=== PATIENT | male | born 1945 | race Caucasian/White ===

== ENCOUNTER 2024-10-14 23:31 | Emergency (ER) | payer MEDICARE, BC, SELFPAY ==
[2024-10-14 23:37] VITALS: BP 188/128
[2024-10-15 00:05] LABS: % Basophils 0.7 % (0-2); % Eosinophils 1.7 % (0-6); % Immature Granulocytes 0.3 % (0-0.5); % Lymphocytes 42.9 % (20.5-51.1); % Neutrophils 44.4 % (42.2-75.2); Absolute Basophils 0.1 10^3/uL (0-0.2); Absolute Eosinophils 0.1 10^3/uL (0-0.7); Absolute Lymphocytes 3.3 10^3/uL (1.2-3.4); Absolute Monocytes 0.8 10^3/uL (0.1-0.6); Absolute Neutrophils 3.4 10^3/uL (1.4-6.5); Hematocrit 45.9 % (39.0-52.0); Hemoglobin 15.7 g/dL (13.0-18.0); Mean Corp Hgb Conc. 34.2 g/dL (33.0-37.0); Mean Corpuscular Hgb 30.2 pg (27.0-31.0); Mean Corpuscular Volume 88.3 fL (80.0-94.0); Mean Platelet Volume 9.4 fL (7.4-10.4); Nucleated Red Blood Cells % 0 % (-); Platelet Count 186 10^3/uL (130-400); Red Cell Dist. Width 13.3 % (11.5-14.5); White Blood Cell Count 7.6 10^3/uL (4.8-10.8)
[2024-10-15 00:10] LABS: ALT (SGPT) 23 U/L (0-50); AST (SGOT) 24 U/L (17-59); Albumin 4.5 g/dl (3.5-5.0); Alkaline Phosphatase 49 U/L (38-126); Blood Urea Nitrogen 22 mg/dl (9-20); Calcium 10.1 mg/dl (8.4-10.2); Carbon Dioxide 25 mmol/L (22-30); Chloride 109 mmol/L (98-107); Glucose 116 mg/dl (70-99); Potassium 4.1 mmol/L (3.5-5.1); Sodium 142 mmol/L (135-145); Total Bilirubin 0.8 mg/dl (0.2-1.3); Total Protein 6.8 g/dl (6.3-8.2); eGFR > 60.00
[2024-10-15 00:21] LABS: Troponin I < 0.012 ng/ml
--- NOTE | 2024-10-15 00:47 | ED.GENMED ---
History of Present Illness
General
Chief Complaint: Blood Pressure Problem
Source: patient and spouse
Time Seen by Provider: 10/15/24 00:21
History of Present Illness
History of Present Illness:
79-year-old gentleman presents to the emergency room complaining of having an episode where he had discomfort that originally presented in his left arm and migrated to his left groin and then his left lower extremity. The discomfort was present for
just a brief period of time in each area. It then dissipated completely. Patient has been having intermittent headaches on the left side of his head. Patient states he was concerned about the symptoms because he had an episode of left-sided
visual loss about a weeks ago. The vision was missing for about a minute. He was seen by his inspector poising who told him he may have had a TIA or stroke. Patient denies any focal weakness numbness or tingling at the time of my evaluation. He
denies any chest pain or shortness of breath. He takes a medication for cholesterol but no other prescription medications.
Phy Exam
Physical Exam
Physical Exam:
General: Awake, Alert, Oriented X3. No acute distress.
Vitals: unremarkable
Head: Atraumatic
Eyes: Pupils equal, EOMI
Throat: Airway intact, no exudates
Neck: Trachea midline
Lungs: Clear and equal b/l
Heart: Regular rate, no murmurs
Abd: Soft, Nontender, No pulsatile mass
Neuro: Cranial nerves intact, muscle strength equal bilaterally, cerebellar exam normal
Skin: Warm, dry, no rash
Extremities: pulses equal b/l, no edema
Course
Orders/Labs/Results
Orders:
Orders
10/14/24 23:44
Complete Blood Count/With Diff Urgent
Comprehensive Metabolic Panel Urgent
Troponin I Urgent
10/15/24 00:46
EKG [Electrocardiogram (*1)] Urgent
Reason for Study: Chest Pain
Other Reason for Exam: no chest pain now, + l upper arm pain
Electrocardiogram (*1) Urgent
Reason for Study: Chest Pain
Cardiac Monitoring- Treatment ONCE
EKG- Treatment ONCE
10/15/24 00:47
CT Head W/o Iv Contrast Urgent
Comment:
Reason For Exam: headache, transient visual changes
Abnormal Lab Results
10/14/24
23:44
Absolute Monos (auto) 0.8 H 10^3/uL
(0.1-0.6)
Monocytes % 10.0 H %
(1.7-9.3)
Chloride 109 H mmol/L
(98-107)
BUN 22 H mg/dl
(9-20)
Glucose 116 H mg/dl
(70-99)
10/14/24 23:44
10/14/24 23:44
Vital Signs
Initial and Last Documented VS:
Initial Vital Signs
Temp Pulse Resp BP Pulse Ox
97.8 F 96 20 188/128 98
10/14/24 23:37 10/14/24 23:37 10/14/24 23:37 10/14/24 23:37 10/14/24 23:37
Last Documented Vital Signs
Temp Pulse Resp BP Pulse Ox
97.8 F 67 20 164/98 96
10/14/24 23:37 10/15/24 02:45 10/15/24 02:45 10/15/24 02:43 10/15/24 02:45
MDM/Problems Addressed
Differential Diagnosis Includes:
Anginal complaint, provide hypertension, TIA
MDM/Problems Addressed:
Patient presents after having transient discomfort in locations on the left side of his body. His neurologic exam here is benign. Labs are unremarkable. CT of the head shows no acute ischemic changes. Troponin is negative. EKG shows no acute
ischemic changes. Unclear what exactly caused the patient to have this fleeting discomfort but there is no evidence for an unstable process. Patient stable for discharge home and outpatient follow-up.
*Radiology
Radiology exam reviewed: all reviewed NAD by ED Provider (Patient report reviewed)
*Pulse Oximetry
Patient hypoxic: no
*EKG
Interpreted by ED Provider?: Yes
Heart Rate: 66
Rate: normal
Rhythm: sinus and PVC's
[place]: normal axis
Interval: normal interval
QRS Pattern: normal QRS
Ischemia: no ischemia
*Clerk Of Scales Interpretation
Rate: normal
Interpretation: normal
Rhythm: sinus
*Critical Care Note
Total Time (30-74mins, 75-104mins- exclusive of procedures): Not Applicable
ED Attending Note
-
Portions of this chart may have been created with voice recognition software.� Occasional wrong word or��sound alike� substitutions may have occurred due to the inherent limitations of voice recognition software.
Discharge Plan
Departure
Patient Disposition: Home (Routine Discharge)
Date of Disposition: 10/15/24
Time of Disposition: 02:57
Patient with high blood pressure during this ER visit?: Yes
Condition: Good
Discharge Problem:
Intermittent left-sided chest pain
Instructions: High Blood Pressure (DC), Chest Pain PCP Follow Up
Referrals:
Nikhil Arauz, DO [Family Provider] -
Activity Restrictions/Additional Instructions:
Your neurologic exam is normal here in the emergency room. Your head Ct does not show any acute abnormalities. Please follow up with your primary care doctor and cardiology as scheduled.
Interventions
Interventions:
*Risk Screen - Suicide Last Done: 10/14/24 23:35
*General Assessment Last Done: 10/15/24 00:40
*Neglect/Abuse Screening Last Done: 10/14/24 23:35
*ED- Fall Risk Assessment Last Done: 10/15/24 00:40
*ED COVID-19 Vaccine History Last Done: 10/15/24 03:00
*Nursing Disposition Last Done: 10/15/24 03:00
ED- Cardiac Assessment Last Done: 10/15/24 00:40
ED- Neurological Assessment Last Done: 10/15/24 00:40
ED- Pulmonary Assessment Last Done: 10/15/24 00:40
Discharge Date and Time
Discharge Date/Time: 10/15/24 03:00
Print Language: SALVADOREAN
[2024-10-15 00:50] VITALS: BP 162/91
[2024-10-15 01:00] VITALS: BP 178/93
[2024-10-15 02:43] VITALS: BP 164/98
== END 2024-10-15 03:00 | disposition home or self-care (01) ==
LOC: EMR 23:31
PROVIDERS: Emergency Medicine; EMERGENCY PHYSICIAN Emergency Medicine; FAMILY PHYSICIAN Family Medicine
DX: R07.89 Other chest pain (principal); M79.602 Pain in left arm; R51.9 Headache, unspecified; H53.122 Transient visual loss, left eye; R03.0 Elevated blood-pressure reading, without diagnosis of hypertension; Z79.899 Other long term (current) drug therapy
CPT/HCPCS: 99284; 70450; 80053; 84484; 85025; 93005

== ENCOUNTER → 2024-10-16 13:31 | Outpatient (REF) | payer MEDICARE, BC, SELFPAY | LOC: RAD 13:31 | PROVIDERS: ATTENDING PHYSICIAN Family Medicine | DX: G45.9 Transient cerebral ischemic attack, unspecified (principal) | CPT/HCPCS: 93880 ==

== ENCOUNTER → 2024-12-13 12:55 | Outpatient (REF) | payer MEDICARE, BC, SELFPAY | LOC: RCS 12:55 | PROVIDERS: ATTENDING PHYSICIAN Internal Medicine Cardiovascular Disease; FAMILY PHYSICIAN Family Medicine | DX: G45.9 Transient cerebral ischemic attack, unspecified (principal) | CPT/HCPCS: 93306 ==

== ENCOUNTER 2025-03-30 15:45 | Emergency (ER) | payer SELFPAY ==
[2025-03-30 15:48] VITALS: BP 159/101
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
== END 2025-03-30 20:42 | disposition home or self-care (01) ==
LOC: EMR 15:45
PROVIDERS: EMERGENCY PHYSICIAN Emergency Medicine; FAMILY PHYSICIAN Family Medicine
DX: S09.90XA Unspecified injury of head, initial encounter (principal); S00.12XA Contusion of left eyelid and periocular area, initial encounter; S00.81XA Abrasion of other part of head, initial encounter; V49.40XA Driver injured in collision with unspecified motor vehicles in traffic accident, initial encounter; W22.19XA Striking against or struck by other automobile airbag, initial encounter; Y92.410 Unspecified street and highway as the place of occurrence of the external cause; I10 Essential (primary) hypertension; E78.00 Pure hypercholesterolemia, unspecified; Z86.16 Personal history of COVID-19
CPT/HCPCS: 99284; 70450; 70486; 71046; 71120; 72125

== ENCOUNTER 2025-06-16 16:14 | Emergency (ER) | payer MEDICARE, BC, SELFPAY ==
[2025-06-16] VITALS (9 sets, daily range): BP systolic 133–157; BP diastolic 79–96; BMI 30.8
[2025-06-16 16:56] LABS: Hematocrit 44.9 % (39.0-52.0); Hemoglobin 15.2 g/dL (13.0-18.0); Mean Corp Hgb Conc. 33.9 g/dL (33.0-37.0); Mean Corpuscular Volume 90.0 fL (80.0-94.0); Nucleated Red Blood Cells % 0 % (-); Platelet Count 189 10^3/uL (130-400); Red Cell Dist. Width 13.4 % (11.5-14.5)
[2025-06-16 17:10] LABS: ALT (SGPT) 25 U/L (0-50); AST (SGOT) 25 U/L (17-59); Albumin 4.3 g/dl (3.5-5.0); Alkaline Phosphatase 45 U/L (38-126); Blood Urea Nitrogen 16 mg/dl (9-20); Calcium 9.3 mg/dl (8.4-10.2); Carbon Dioxide 27 mmol/L (22-30); Chloride 103 mmol/L (98-107); Glucose 109 mg/dl (70-99); Potassium 4.4 mmol/L (3.5-5.1); Sodium 135 mmol/L (135-145); Total Protein 6.9 g/dl (6.3-8.2); eGFR > 60.00
[2025-06-16 17:20] LABS: COVID-19 Antigen Negative (Negative)
[2025-06-16] MEDS: TYLENOL 650 MG PO (18:05)
[2025-06-16] MEDS: NSS 1000 IV (18:13)
--- NOTE | 2025-06-16 19:03 | ED.GENMED ---
History of Present Illness
<Senait Kuhn PA-C - Last Filed: 06/17/25 21:16>
General
Chief Complaint: Breathing Problem
Source: patient
Exam Limitations: none
Time Seen by Provider: 06/16/25 17:23
Nursing documentation reviewed up to this point in time: agreed with
History of Present Illness
History of Present Illness:
Patient is an 80-year-old male who presents emergency department for evaluation of fever and cough. Patient states he woke up early this morning and had a temp of 102.7F. He then developed a cough this morning. He describes initially noticing
blood-tinged sputum however then coughed up what resembled a small clot.
He was seen by his primary care provider where he coughed up a small amount of 'purple sputum'. He was referred to the emergency department for further evaluation.
Patient denies any chest pain or shortness of breath. He denies any GI symptoms including nausea/vomiting or diarrhea. He denies any recent travel or recent surgery. No history of malignancy.
Of note�a few of his family numbers to eat dinner with are sick with URI symptoms.
Past History
<Senait Kuhn PA-C - Last Filed: 06/17/25 21:16>
Past History
ED Past Medical History: HTN and Hypercholesterolemia
Review of Systems
<Senait Kuhn PA-C - Last Filed: 06/17/25 21:16>
Review of Systems
Allergies reviewed?: Yes
All Other Systems: ROS reviewed and negative except as documented in HPI and ROS
Phy Exam
<Senait Kuhn PA-C - Last Filed: 06/17/25 21:16>
Physical Exam
Physical Exam:
Vitals: Patient's vital signs are stable. Afebrile
General: Patient is well appearing, no acute distress. Nontoxic appearing
Skin: Warm and dry, no rashes or lesions
Head: Normocephalic, atraumatic
Eyes: Sclera nonicteric.
Throat: Protecting airway
Neck: Normal ROM, no cervical spine tenderness, no meningismus
Cardiac: Regular rate and rhythm, no murmurs.
Pulm: Normal respiratory effort. Lungs clear
Abdomen: No abdominal tenderness.
Extremities: No evidence of cyanosis or edema
Neuro: AAOx3. Grossly intact.
Psychiatric: Normal affect.
Scores
<Senait Kuhn PA-C - Last Filed: 06/17/25 21:16>
Heart Failure Risk
Heart Failure Risk Score: Not Applicable
Course
<Senait Kuhn PA-C - Last Filed: 06/17/25 21:16>
Orders/Labs/Results
Orders:
Orders
06/16/25 16:27
CR Chest - 2 Views Urgent
Comment:
Reason For Exam: cough.fever
06/16/25 16:38
COVID-19 Antigen Urgent
Source: Nasal Swab
Complete Blood Count/With Diff Urgent
Comprehensive Metabolic Panel Urgent
Influenza A+B Rapid Molecular Urgent
SHAHAB Source: Nasal Swab
Specimen Description:
06/16/25 17:45
0.9% Sodium Chloride 1000 ml [Nss] 1,000 ml IV BOLUS
Acetaminophen [Tylenol] 650 mg PO NOW STA
06/16/25 19:50
D-Dimer Urgent
06/16/25 20:[address] [CT Chest With Iv Contrast] Urgent
Comment:
Reason For Exam: fever, cough, hemoptysis
06/16/25 22:35
Azithromycin [Zithromax] 500 mg PO NOW STA
Abnormal Lab Results
06/16/25 06/16/25
16:38 19:50
WBC 14.9 H 10^3/uL
(4.8-10.8)
Abs Immat Gran (auto) 0.1 H 10^3/uL
(0-0.05)
Absolute Neuts (auto) 12.5 H 10^3/uL
(1.4-6.5)
Absolute Monos (auto) 0.9 H 10^3/uL
(0.1-0.6)
Neutrophils % 84.1 H %
(42.2-75.2)
Lymphocytes % 8.9 L %
(20.5-51.1)
D-Dimer 0.71 H ug/mlFEU
(0.00-0.50)
Glucose 109 H mg/dl
(70-99)
06/16/25 16:38
06/16/25 16:38
Vital Signs
Initial and Last Documented VS:
Initial Vital Signs
Temp Pulse Resp BP Pulse Ox
97.9 F 99 20 138/84 94
06/16/25 16:25 06/16/25 16:25 06/16/25 16:25 06/16/25 16:25 06/16/25 16:25
Last Documented Vital Signs
Temp Pulse Resp BP Pulse Ox
97.9 F 74 22 157/90 95
06/16/25 16:25 06/16/25 22:40 06/16/25 22:40 06/16/25 22:40 06/16/25 22:34
<Jared Pack MD - Last Filed: 06/16/25 19:37>
Orders/Labs/Results
Orders:
Orders
06/16/25 16:27
CR Chest - 2 Views Urgent
Comment:
Reason For Exam: cough.fever
06/16/25 16:38
COVID-19 Antigen Urgent
Source: Nasal Swab
Complete Blood Count/With Diff Urgent
Comprehensive Metabolic Panel Urgent
Influenza A+B Rapid Molecular Urgent
SHAHAB Source: Nasal Swab
Specimen Description:
06/16/25 17:45
0.9% Sodium Chloride 1000 ml [Nss] 1,000 ml IV BOLUS
Acetaminophen [Tylenol] 650 mg PO NOW STA
06/16/25 19:50
D-Dimer Urgent
06/16/25 20:[address] [CT Chest With Iv Contrast] Urgent
Comment:
Reason For Exam: fever, cough, hemoptysis
06/16/25 22:35
Azithromycin [Zithromax] 500 mg PO NOW STA
Abnormal Lab Results
06/16/25 06/16/25
16:38 19:50
WBC 14.9 H 10^3/uL
(4.8-10.8)
Abs Immat Gran (auto) 0.1 H 10^3/uL
(0-0.05)
Absolute Neuts (auto) 12.5 H 10^3/uL
(1.4-6.5)
Absolute Monos (auto) 0.9 H 10^3/uL
(0.1-0.6)
Neutrophils % 84.1 H %
(42.2-75.2)
Lymphocytes % 8.9 L %
(20.5-51.1)
D-Dimer 0.71 H ug/mlFEU
(0.00-0.50)
Glucose 109 H mg/dl
(70-99)
06/16/25 16:38
06/16/25 16:38
Vital Signs
Initial and Last Documented VS:
Initial Vital Signs
Temp Pulse Resp BP Pulse Ox
97.9 F 99 20 138/84 94
06/16/25 16:25 06/16/25 16:25 06/16/25 16:25 06/16/25 16:25 06/16/25 16:25
Last Documented Vital Signs
Temp Pulse Resp BP Pulse Ox
97.9 F 74 22 157/90 95
06/16/25 16:25 06/16/25 22:40 06/16/25 22:40 06/16/25 22:40 06/16/25 22:34
<Senait Kuhn PA-C - Last Filed: 06/17/25 21:16>
MDM/Problems Addressed
Differential Diagnosis Includes:
Not limited to: Bronchitis, pneumonia, viral illness, pulmonary embolism, malignancy, EXTR
MDM/Problems Addressed:
80-year-old male presenting with fever, cough, and episodes of hempotysis today. Not anticoagulated. Does have recent sick contacts. He is afebrile here with otherwise stable vital signs. He�s not hypoxic or tachypneic. On exam, he appears in no
distress. Cardio/pulmonary assessment reveals regular heart rate and rhythm. Lungs clear bilaterally. No pitting edema or tenderness of lower extremities.
Differential broad. With associated fever and cough � clinical picture most consistent with infectious etiology, including pneumonia or bronchitis. However, pulmonary embolism would be on differential, although he has no risk factors.
Basic labs reveal a leukocytosis of 14.9. Chemistry panel unremarkable. His chest x-ray does not show any acute findings.
Plan to proceed with CT imaging of chest for further evaluation. Will check d-dimer first.
D-dimer age adjusted normal. Do not suspect PE. Will proceed with CT scan of chest with IV contrast to rule out pneumonia, malignancy, or hemorrhage.
Update: CT scan does reveal patchy linear apacities in bilateral lobes clinically suspicious for infectious/inflammatory process. Given history of fever � suspect this is likely infectious in nature. Thoracic aneurysmal dilation noted. Discussed
with patient.
Patient is not in any respiratory stress and has not had any episodes of hemoptysis. Brief discussion with marketing underwriter.
Will treat patient with course of azithromycin and short course of steroids to cover for infectious process. Ultimately � feel stable for discharge home with continued follow -up outpatient with PCP. Very strict return precaution discussed. Patient
and patient�s comfortable with plan.
Chronic conditions affecting care:
N/A
Acute Exacerbation and/or Progression of Chronic Illness:
N/A
<Senait Kuhn PA-C - Last Filed: 06/17/25 21:16>
*Radiology
Radiology exam reviewed: preliminary read by ED provider (Chest x-ray reviewed by il-no acute abnormalities) and radiology read reviewed
*Pulse Oximetry
SaO2: 95
Oxygen Mode of Delivery: Room air
Patient hypoxic: no
*EKG
Interpreted by ED Provider?: NA
*Harp Repairer Interpretation
Rate: Harp Repairer- N/A
*Critical Care Note
Total Time (30-74mins, 75-104mins- exclusive of procedures): Not Applicable
<Senait Kuhn PA-C - Last Filed: 06/17/25 21:16>
Patient Management
Discussion with other providers: Service Correspondent (Case discussed with marketing underwriter)
ED Attending Note
<Senait Kuhn PA-C - Last Filed: 06/17/25 21:16>
-
Portions of this chart may have been created with voice recognition software.� Occasional wrong word or��sound alike� substitutions may have occurred due to the inherent limitations of voice recognition software.
<Jared Pack MD - Last Filed: 06/16/25 19:37>
ED Attending Note
Patient seen and examined by attending physician: Yes
ED Attending Note:
Patient presents to ED secondary to fever, along with cough upon waking up this morning. Patient reports multiple episodes of cough, associated with phlegm mixed with blood. In between, patient has had cough with 'dime sized blood clot'. Denies
abdominal pain. Denies nausea or vomiting. Denies shortness of breath. Denies throat pain. Denies headache. Patient states that he has been with multiple family members, who has had nonspecific fever body ache, viral symptoms. Denies vomiting
or diarrhea. Denies back pain. Denies leg pain or swelling. Denies recent travel or surgery. Denies smoking. Denies previous history of similar symptoms.
Physical Exam
General: no apparent distress, not acutely ill. afebrile
Head: nc/at. eomi
Neck: supple. normal range of motion.
Heart: s1/s2 regular rate and rhythm
Lungs: no acute respiratory distress. clear bilaterally
Abdomen: normal bowel sounds. not tender.
Neuro: alert and oriented x 3. no focal neurological deficits
Skin: no rash
Psychiatric: well kept. interactive and cooperative
Extremities: no edema. no calf tenderness.
Discharge Plan
Departure
Patient Disposition: Home (Routine Discharge)
Date of Disposition: 06/16/25
Time of Disposition: 22:43
Patient with high blood pressure during this ER visit?: Yes
Discharge Problem:
Pneumonia, Hemoptysis
Instructions: Coughing up blood, Pneumonia in adults (DC), BLOOD PRESSURE
Prescriptions:
New
azithromycin 250 mg tablet
250 mg PO DAILY 4 Days Qty: 4 0RF
prednisone 20 mg tablet
40 mg PO DAILY 5 Days Qty: 10 0RF
No Action
tamsulosin [Flomax] 0.4 mg Capsule
0.4 mg PO QPM
acetaminophen [Tylenol] 325 mg Tablet
650 mg PO Q6HPRN PRN (Reason: mild pain)
Theragen Tablet
1 tab PO DAILY
aspirin 81 mg Tablet,Delayed Release (Dr/Ec)
81 mg PO QPM
calcium carbonate [Calcium 500] 500 mg calcium (1,250 mg) Tablet
500 mg PO DAILY
rosuvastatin [Crestor] 20 mg Tablet
20 mg PO QPM
Referrals:
Your PCP [Other] - Follow up in 2-3 days
Melinda Ly, DO [Active, Pulmonary Medicine] - As needed
UNKNOWN - PT NOT,INTERVIEWE [Family Provider]
Activity Restrictions/Additional Instructions:
RETURN TO THE EMERGENCY DEPARTMENT WITH FEVER, CHILLS, CHEST PAIN OR SHORTNESS OF BREATH, PERSISTENT COUGHING UP BLOOD, WEAKNESS, WORSENING IN CURRENT SYMPTOMS, OR ANY OTHER CONCERNS
- As discussed your white blood cell count was elevated today in the emergency department. This is likely secondary to your suspected pneumonia however please have labs repeated with primary care to ensure returns to normal. Your CT scan did show
opacities suspicious for pneumonia.
- You were given 1 dose of azithromycin tonight in the emergency department. Please continue azithromycin prescription as directed daily for the next 4 days. You can start course of steroids tomorrow and continue for 5 days.
- Please stay well-hydrated. Continue to take all medications as prescribed.
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
- Follow-up with your primary care doctor later this week to ensure that symptoms are improving
Monitor your symptoms closely return to the emergency department with any acute worsening/new symptoms or any other concerns
Interventions
Interventions:
*Risk Screen - Suicide Last Done: 06/16/25 16:15
*General Assessment Last Done: 06/16/25 16:25
*ED COVID-19 Vaccine History Last Done: 06/16/25 18:09
*ED Influenza Vaccine History Last Done: 06/16/25 18:09
[facility] Fall Risk Assessment Tool Last Done: 06/16/25 17:41
*Nursing Disposition Last Done: 06/16/25 22:53
ED- Cardiac Assessment Last Done: 06/16/25 18:09
ED- Pulmonary Assessment Last Done: 06/16/25 18:09
Discharge Date and Time
Discharge Date/Time: 06/16/25 22:53
Print Language: ICELANDIC
[2025-06-16 20:09] LABS: D-Dimer 0.71 ug/mlFEU (0.00-0.50)
[2025-06-16] MEDS: ZITHROMAX 500 MG PO (22:43)
== END 2025-06-16 22:53 | disposition home or self-care (01) ==
LOC: EMR 16:14
PROVIDERS: EMERGENCY PHYSICIAN Emergency Medicine
DX: J18.9 Pneumonia, unspecified organism (principal); I10 Essential (primary) hypertension; E78.00 Pure hypercholesterolemia, unspecified; I71.21 Aneurysm of the ascending aorta, without rupture; Z79.82 Long term (current) use of aspirin
CPT/HCPCS: 99284; 96360; 96361; 71046; 71260; 80053; 85025; 85379; 87502; 87811; Q9967